=== PATIENT | male | born 1940 | race Caucasian/White ===

== ENCOUNTER 2022-03-10 05:40 | Outpatient (REF) | payer MEDICARE, OTHER, SELFPAY ==
[2022-03-10 07:11] LABS: MANUAL DIFF FLAG NO
[2022-03-10 07:35] LABS: Basophils Absolute Auto 0.1 X10*3/uL (0.0-0.2); Eosinophils Absolute Auto 0.1 X10*3/uL (0.0-0.4); Eosinophils Percent Auto 2.3 % (0-4); Hemoglobin 12.1 g/dl (14.0-18.0); Imm Gran Abs Auto 0.05 X10*3/uL (0.00-0.03); Imm Gran Pct Auto 0.9 % (0.0-0.4); Lymphocytes Absolute Auto 1.2 X10*3/uL (1.2-4.9); Lymphocytes Percent Auto 21.4 % (20-40); Mean Corpuscular HGB Conc 31.8 g/dl (31.0-36.0); Mean Corpuscular Hemoglobin 30.3 pg (27.0-33.0); Mean Platelet Volume 10.9 fL (9.4-12.4); Monocytes Absolute Auto 0.5 X10*3/uL (0.1-1.2); Monocytes Percent Auto 8.7 % (2-11); Neutrophils Absolute Auto 3.8 x10*3/uL (2.0-8.3); Neutrophils Percent Auto 65.7 % (45-73); Platelet Count 277 X10*3/uL (160-400); Red Cell Distribution Width 16.1 % (11.0-16.0); White Blood Count 5.8 X10*3/uL (4.8-10.8)
[2022-03-10 07:46] LABS: Appearance Urine CLEAR; Color Urine YELLOW; Glucose Urine UA NEG (NEG); Leukocyte Esterase Urine NEG (NEG); Nitrite Urine NEG (NEG); PH 5.5 (5.0-8.0); UACC Culture Trigger NO; Urine Blood TRACE (NEG); Urine Ketones NEG (NEG); Urine Protein TRACE MG/DL (NEG-TRACE)
[2022-03-10 07:54] LABS: Anion Gap 13 (12-20); Blood Urea Nitrogen 39 mg/dL (9-16); Calcium 9.9 mg/dL (8.4-10.2); Carbon Dioxide 25 mmol/L (22-29); Chloride 108 mmol/L (96-108); Cholesterol 113 mg/dL; Estimated Glomerular Filt Rate > 60; Glucose Random 81 mg/dL (60-115); HDL Cholesterol 38 mg/dL; LDL Cholesterol Calculated 54 mg/dl; Sodium 141 mmol/L (135-145); Triglycerides 109 mg/dL
[2022-03-10 07:56] LABS: Estimated Average Glucose 137 mg/dL; Hemoglobin A1c % 6.4 %
[2022-03-10 08:20] LABS: Creatinine Urine 92.48 mg/dL; Microalbum/Creatinine Ratio Ur 128.6 ug/mg cr
[2022-03-10 08:28] LABS: Squamous Epithelial Cell Urine TRACE /LPF
[2022-03-10 08:29] LABS: Bacteria Urine TRACE /LPF; Calcium Oxalate Crystals Urine TRACE /LPF
[2022-03-12 23:11] LABS: TS Negative Control Passed; TS Panel A 0; TS Panel B 0; TS Positive Control Passed; TSpotTB Negative (Negative)
== END 2022-03-10 05:41 | disposition home or self-care (01) ==
LOC: HO.HSH4E 05:40
PROVIDERS: Visit Provider Internal Medicine Endocrinology, Diabetes & Metabolism
DX: Z02.2 Encounter for examination for admission to residential institution (principal); Z11.1 Encounter for screening for respiratory tuberculosis; E11.9 Type 2 diabetes mellitus without complications; E78.5 Hyperlipidemia, unspecified
CPT/HCPCS: 36415; 80048; 80061; 81001; 81003; 82043; 83036; 85025; 86481

== ENCOUNTER 2022-04-05 05:36 | Outpatient (REF) | payer MEDICARE, OTHER, SELFPAY ==
[2022-04-05 08:21] LABS: Iron 65 mcg/dL (45-160); Percent Iron Saturation 19 % (15-50); Total Iron Binding Capacity 345 mcg/dL (228-428); Unsaturated Iron Binding 280 ug/dL
[2022-04-05 08:30] LABS: Ferritin 62 ng/mL (20-250); Thyroid Stimulating Hormone 1.29 uIU/mL (0.32-4.0)
[2022-04-05 08:39] LABS: Erythrocyte Sedimentation Rate 17 MM/HR (0-15)
[2022-04-05 08:55] LABS: Folate 10.2 ng/mL (> or = 4.0); Vitamin B12 231 pg/mL (200-900)
== END 2022-04-05 05:37 | disposition home or self-care (01) ==
LOC: HO.HSH4W 05:36
PROVIDERS: Visit Provider Internal Medicine
DX: D64.9 Anemia, unspecified (principal); M54.50 Low back pain, unspecified
CPT/HCPCS: 36415; 82607; 82728; 82746; 83540; 84443; 84550; 85652

== ENCOUNTER 2022-04-06 05:33 | Outpatient (REF) | payer MEDICARE, OTHER, SELFPAY ==
[2022-04-08 16:32] LABS: Homocysteine 16.6 umol/L (<11.4)
[2022-04-13 11:39] LABS: Methylmalonic Acid 287 nmol/L (87-318)
== END 2022-04-06 05:34 | disposition home or self-care (01) ==
LOC: HO.HSH4W 05:33
PROVIDERS: Visit Provider Internal Medicine
DX: E53.8 Deficiency of other specified B group vitamins (principal); M54.9 Dorsalgia, unspecified
CPT/HCPCS: 36415; 82550; 83090; 83921

== ENCOUNTER 2022-05-13 12:07 | Outpatient (REF) | payer MEDICARE, OTHER, SELFPAY ==
[2022-05-13 12:55] LABS: INTERNATIONAL NORM RATIO 1.1 (0.9-1.1)
[2022-05-13 12:58] LABS: Partial Thromboplastin Time 42.8 SEC (24.1-38.0)
== END 2022-05-13 12:08 | disposition home or self-care (01) ==
LOC: HO.HSH4E 12:07
PROVIDERS: Visit Provider Internal Medicine
DX: S32.9XXD Fracture of unspecified parts of lumbosacral spine and pelvis, subsequent encounter for fracture with routine healing (principal)
CPT/HCPCS: 36415; 85610; 85730

== ENCOUNTER 2022-05-16 10:06 | Outpatient (REF) | payer MEDICARE, SELFPAY ==
[2022-05-16 10:34] LABS: MANUAL DIFF FLAG NO
[2022-05-16 10:44] LABS: Basophils Percent Auto 0.3 % (0-2); Eosinophils Percent Auto 0.1 % (0-4); Hematocrit 37.5 % (42.0-52.0); Hemoglobin 12.4 g/dl (14.0-18.0); Imm Gran Abs Auto 0.12 X10*3/uL (0.00-0.03); Imm Gran Pct Auto 0.9 % (0.0-0.4); Lymphocytes Absolute Auto 0.5 X10*3/uL (1.2-4.9); Lymphocytes Percent Auto 3.8 % (20-40); Mean Corpuscular HGB Conc 33.1 g/dl (31.0-36.0); Mean Corpuscular Hemoglobin 31.6 pg (27.0-33.0); Mean Corpuscular Volume 95.7 fL (80.0-98.0); Mean Platelet Volume 11.6 fL (9.4-12.4); Monocytes Absolute Auto 0.8 X10*3/uL (0.1-1.2); Monocytes Percent Auto 6.2 % (2-11); Neutrophils Absolute Auto 11.8 x10*3/uL (2.0-8.3); Neutrophils Percent Auto 88.7 % (45-73); Platelet Count 313 X10*3/uL (160-400); Red Blood Count 3.92 X10*6/uL (4.60-5.80); Red Cell Distribution Width 15.5 % (11.0-16.0); White Blood Count 13.3 X10*3/uL (4.8-10.8)
== END 2022-05-16 10:07 | disposition home or self-care (01) ==
LOC: HO.HSH4W 10:06
PROVIDERS: Visit Provider Internal Medicine
DX: E11.9 Type 2 diabetes mellitus without complications (principal)
CPT/HCPCS: 36415; 85025

== ENCOUNTER 2022-05-28 15:34 | Outpatient (REF) | payer MEDICARE, SELFPAY ==
[2022-05-28 16:07] LABS: Hematocrit 37.9 % (42.0-52.0); Hemoglobin 12.2 g/dl (14.0-18.0); Mean Corpuscular HGB Conc 32.2 g/dl (31.0-36.0); Mean Corpuscular Hemoglobin 31.6 pg (27.0-33.0); Mean Corpuscular Volume 98.2 fL (80.0-98.0); Mean Platelet Volume 10.4 fL (9.4-12.4); Platelet Count 420 X10*3/uL (160-400); Red Blood Count 3.86 X10*6/uL (4.60-5.80); Red Cell Distribution Width 15.6 % (11.0-16.0); White Blood Count 9.7 X10*3/uL (4.8-10.8)
[2022-05-28 16:11] LABS: Appearance Urine CLEAR; Color Urine YELLOW; Glucose Urine UA NEG (NEG); Leukocyte Esterase Urine NEG (NEG); Nitrite Urine NEG (NEG); UACC Culture Trigger NO; Urine Blood TRACE (NEG); Urine Ketones NEG (NEG); Urine Protein NEG (NEG-TRACE)
[2022-05-28 16:24] LABS: Alanine Aminotransferase 9 U/L (0-40); Albumin Level 3.6 g/dL (3.5-5.0); Alkaline Phosphatase 104 U/L (39-117); Anion Gap 18 (12-20); Aspartate Amino Transferase 14 U/L (5-37); Blood Urea Nitrogen 55 mg/dL (9-16); Calcium 9.7 mg/dL (8.4-10.2); Carbon Dioxide 23 mmol/L (22-29); Chloride 104 mmol/L (96-108); Estimated Glomerular Filt Rate 46; Glucose Random 132 mg/dL (60-115); Potassium 5.3 mmol/L (3.3-5.1); Sodium 140 mmol/L (135-145); Total Protein 6.4 g/dL (6.5-8.0)
[2022-05-28 16:27] LABS: RBC Urine 0-2 /HPF (0); WBC Urine 0 /HPF (0-4)
[2022-05-28 16:31] LABS: Bilirubin Total 0.2 mg/dL (0.0-1.0)
== END 2022-05-28 15:35 | disposition home or self-care (01) ==
LOC: HO.HSH 15:34
PROVIDERS: Visit Provider Internal Medicine Interventional Cardiology
DX: D72.829 Elevated white blood cell count, unspecified (principal); R41.82 Altered mental status, unspecified
CPT/HCPCS: 36415; 80053; 81001; 81003; 85025; 85027

== ENCOUNTER 2022-06-07 07:44 | Outpatient (REF) | payer MEDICARE, SELFPAY ==
[2022-06-07 08:19] LABS: Anion Gap 15 (12-20); Blood Urea Nitrogen 31 mg/dL (9-16); Calcium 9.8 mg/dL (8.4-10.2); Carbon Dioxide 29 mmol/L (22-29); Chloride 102 mmol/L (96-108); Estimated Glomerular Filt Rate > 60; Glucose Fasting 114 mg/dL (60-99); Potassium 4.8 mmol/L (3.3-5.1); Sodium 141 mmol/L (135-145)
== END 2022-06-07 07:45 | disposition home or self-care (01) ==
LOC: HO.HSH4W 07:44
PROVIDERS: Visit Provider Internal Medicine
DX: I10 Essential (primary) hypertension (principal); E11.9 Type 2 diabetes mellitus without complications
CPT/HCPCS: 36415; 80048

== ENCOUNTER 2022-06-13 12:20 | Outpatient (REF) | payer MEDICARE, SELFPAY ==
[2022-06-13 13:59] LABS: Hematocrit 41.3 % (42.0-52.0); Hemoglobin 13.3 g/dl (14.0-18.0); Mean Corpuscular HGB Conc 32.2 g/dl (31.0-36.0); Mean Corpuscular Hemoglobin 31.2 pg (27.0-33.0); Mean Corpuscular Volume 96.9 fL (80.0-98.0); Mean Platelet Volume 11.7 fL (9.4-12.4); Platelet Count 301 X10*3/uL (160-400); Red Blood Count 4.26 X10*6/uL (4.60-5.80); Red Cell Distribution Width 14.9 % (11.0-16.0); White Blood Count 7.4 X10*3/uL (4.8-10.8)
[2022-06-13 14:08] LABS: Anion Gap 15 (12-20); Blood Urea Nitrogen 29 mg/dL (9-16); Calcium 10.7 mg/dL (8.4-10.2); Carbon Dioxide 27 mmol/L (22-29); Chloride 99 mmol/L (96-108); Estimated Glomerular Filt Rate > 60; Glucose Random 187 mg/dL (60-115); Potassium 5.1 mmol/L (3.3-5.1); Sodium 136 mmol/L (135-145)
== END 2022-06-13 12:21 | disposition home or self-care (01) ==
LOC: HO.HSH4W 12:20
PROVIDERS: Visit Provider Internal Medicine
DX: R41.0 Disorientation, unspecified (principal)
CPT/HCPCS: 36415; 80048; 85027

== ENCOUNTER 2022-06-16 | Outpatient (REF) | payer MEDICARE, SELFPAY | END 2022-06-16 00:01 | disposition home or self-care (01) | LOC: HO.HSH4W | PROVIDERS: Visit Provider Internal Medicine | DX: Z13.89 Encounter for screening for other disorder (principal) ==

== ENCOUNTER 2022-06-22 05:56 | Outpatient (REF) | payer MEDICARE, SELFPAY ==
[2022-06-22 06:38] LABS: MANUAL DIFF FLAG NO
[2022-06-22 06:42] LABS: Basophils Absolute Auto 0.1 X10*3/uL (0.0-0.2); Basophils Percent Auto 0.7 % (0-2); Eosinophils Absolute Auto 0.1 X10*3/uL (0.0-0.4); Hematocrit 37.5 % (42.0-52.0); Hemoglobin 11.9 g/dl (14.0-18.0); Imm Gran Abs Auto 0.18 X10*3/uL (0.00-0.03); Mean Corpuscular HGB Conc 31.7 g/dl (31.0-36.0); Mean Corpuscular Hemoglobin 31.1 pg (27.0-33.0); Mean Corpuscular Volume 97.9 fL (80.0-98.0); Mean Platelet Volume 10.8 fL (9.4-12.4); Monocytes Absolute Auto 0.8 X10*3/uL (0.1-1.2); Monocytes Percent Auto 8.8 % (2-11); Neutrophils Percent Auto 76.5 % (45-73); Platelet Count 362 X10*3/uL (160-400); Red Blood Count 3.83 X10*6/uL (4.60-5.80); White Blood Count 9.2 X10*3/uL (4.8-10.8)
== END 2022-06-22 05:57 | disposition home or self-care (01) ==
LOC: HO.HSH4W 05:56
PROVIDERS: Visit Provider Internal Medicine Interventional Cardiology
DX: K92.0 Hematemesis (principal)
CPT/HCPCS: 36415; 85025

== ENCOUNTER 2022-06-28 05:53 | Outpatient (REF) | payer MEDICARE, SELFPAY ==
[2022-06-28 07:37] LABS: MANUAL DIFF FLAG NO
[2022-06-28 07:39] LABS: Basophils Absolute Auto 0.1 X10*3/uL (0.0-0.2); Basophils Percent Auto 0.8 % (0-2); Eosinophils Absolute Auto 0.1 X10*3/uL (0.0-0.4); Eosinophils Percent Auto 1.4 % (0-4); Hematocrit 37.7 % (42.0-52.0); Hemoglobin 11.9 g/dl (14.0-18.0); Imm Gran Abs Auto 0.37 X10*3/uL (0.00-0.03); Lymphocytes Absolute Auto 1.3 X10*3/uL (1.2-4.9); Lymphocytes Percent Auto 13.5 % (20-40); Mean Corpuscular HGB Conc 31.6 g/dl (31.0-36.0); Mean Corpuscular Hemoglobin 31.3 pg (27.0-33.0); Mean Corpuscular Volume 99.2 fL (80.0-98.0); Mean Platelet Volume 11.8 fL (9.4-12.4); Monocytes Absolute Auto 0.8 X10*3/uL (0.1-1.2); Monocytes Percent Auto 8.8 % (2-11); Neutrophils Absolute Auto 6.7 x10*3/uL (2.0-8.3); Neutrophils Percent Auto 71.5 % (45-73); Platelet Count 395 X10*3/uL (160-400); Red Cell Distribution Width 15.5 % (11.0-16.0); White Blood Count 9.3 X10*3/uL (4.8-10.8)
[2022-06-28 07:52] LABS: Alanine Aminotransferase 6 U/L (0-40); Albumin Level 3.5 g/dL (3.5-5.0); Alkaline Phosphatase 89 U/L (39-117); Anion Gap 16 (12-20); Aspartate Amino Transferase 11 U/L (5-37); Bilirubin Total 0.2 mg/dL (0.0-1.0); Blood Urea Nitrogen 43 mg/dL (9-16); Calcium 9.6 mg/dL (8.4-10.2); Carbon Dioxide 27 mmol/L (22-29); Chloride 105 mmol/L (96-108); Estimated Glomerular Filt Rate > 60; Glucose Fasting 118 mg/dL (60-99); Potassium 5.8 mmol/L (3.3-5.1); Sodium 142 mmol/L (135-145); Total Protein 6.2 g/dL (6.5-8.0)
== END 2022-06-28 05:54 | disposition home or self-care (01) ==
LOC: HO.HSH4W 05:53
PROVIDERS: Visit Provider Internal Medicine
DX: D64.9 Anemia, unspecified (principal); R53.83 Other fatigue
CPT/HCPCS: 36415; 80053; 85025

== ENCOUNTER 2022-06-29 | Outpatient (REF) | payer MEDICARE, SELFPAY ==
[2022-06-30 07:53] LABS: OBS Int Ctl Valid YES; OBS1 NEGATIVE (NEGATIVE)
== END 2022-06-30 06:01 | disposition home or self-care (01) ==
LOC: HO.HSH4W
PROVIDERS: Visit Provider Internal Medicine
DX: D64.9 Anemia, unspecified (principal)
CPT/HCPCS: 82272

== ENCOUNTER 2022-07-02 19:24 | Outpatient (REF) | payer MEDICARE, SELFPAY ==
[2022-07-02 19:30] LABS: OBS Int Ctl Valid YES; OBS1 NEGATIVE (NEGATIVE)
== END 2022-07-02 19:25 | disposition home or self-care (01) ==
LOC: HO.HSH4W 19:24
PROVIDERS: Visit Provider Internal Medicine
DX: D64.9 Anemia, unspecified (principal)
CPT/HCPCS: 82272

== ENCOUNTER 2022-07-10 20:37 | Outpatient (REF) | payer MEDICARE, OTHER, SELFPAY ==
[2022-07-10 20:59] LABS: OBS Int Ctl Valid YES; OBS1 NEGATIVE (NEGATIVE)
== END 2022-07-10 20:38 | disposition home or self-care (01) ==
LOC: HO.HSH 20:37
PROVIDERS: Visit Provider Internal Medicine
DX: D64.9 Anemia, unspecified (principal)
CPT/HCPCS: 82272

== ENCOUNTER 2022-08-04 05:56 | Outpatient (REF) | payer MEDICARE, OTHER, SELFPAY ==
[2022-08-06 14:47] LABS: Immunoglobulin A 241 mg/dL (70-320)
[2022-08-09 09:07] LABS: Transglutaminase IgA <1.0 U/mL
== END 2022-08-04 05:57 | disposition home or self-care (01) ==
LOC: HO.HSH4W 05:56
PROVIDERS: Visit Provider Internal Medicine
DX: R63.4 Abnormal weight loss (principal)
CPT/HCPCS: 36415; 82784; 86364

== ENCOUNTER 2022-08-05 21:06 | Outpatient (REF) | payer MEDICARE, OTHER, SELFPAY | END 2022-08-05 21:07 | disposition home or self-care (01) | LOC: HO.HSH4W 21:06 | PROVIDERS: Visit Provider Internal Medicine | DX: R63.4 Abnormal weight loss (principal) | CPT/HCPCS: 87338 ==

== ENCOUNTER 2022-08-31 06:03 | Outpatient (REF) | payer MEDICARE, OTHER, SELFPAY ==
[2022-08-31 07:57] LABS: Estimated Average Glucose 140 mg/dL; Hemoglobin A1c % 6.5 %
[2022-08-31 08:12] LABS: Alanine Aminotransferase < 6 U/L (0-40); Albumin Level 3.8 g/dL (3.5-5.0); Alkaline Phosphatase 74 U/L (39-117); Anion Gap 18 (12-20); Aspartate Amino Transferase 11 U/L (5-37); Bilirubin Total 0.2 mg/dL (0.0-1.0); Blood Urea Nitrogen 37 mg/dL (9-16); Calcium 9.8 mg/dL (8.4-10.2); Carbon Dioxide 26 mmol/L (22-29); Chloride 104 mmol/L (96-108); Estimated Glomerular Filt Rate > 60; Glucose Fasting 114 mg/dL (60-99); Potassium 5.1 mmol/L (3.3-5.1); Sodium 143 mmol/L (135-145); Total Protein 6.5 g/dL (6.5-8.0)
== END 2022-08-31 06:04 | disposition home or self-care (01) ==
LOC: HO.HSH4W 06:03
PROVIDERS: Visit Provider Internal Medicine
DX: E11.9 Type 2 diabetes mellitus without complications (principal); I10 Essential (primary) hypertension
CPT/HCPCS: 36415; 80053; 83036

== ENCOUNTER 2022-09-01 12:57 | Outpatient (REF) | payer MEDICARE, OTHER, SELFPAY ==
[2022-09-01 13:05] LABS: MANUAL DIFF FLAG NO
[2022-09-01 13:12] LABS: Basophils Absolute Auto 0.1 X10*3/uL (0.0-0.2); Basophils Percent Auto 0.7 % (0-2); Eosinophils Absolute Auto 0.2 X10*3/uL (0.0-0.4); Eosinophils Percent Auto 1.7 % (0-4); Hematocrit 36.8 % (42.0-52.0); Hemoglobin 11.6 g/dl (14.0-18.0); Imm Gran Abs Auto 0.06 X10*3/uL (0.00-0.03); Imm Gran Pct Auto 0.6 % (0.0-0.4); Lymphocytes Absolute Auto 1.1 X10*3/uL (1.2-4.9); Lymphocytes Percent Auto 11.2 % (20-40); Mean Corpuscular HGB Conc 31.5 g/dl (31.0-36.0); Mean Corpuscular Hemoglobin 31.4 pg (27.0-33.0); Mean Corpuscular Volume 99.7 fL (80.0-98.0); Mean Platelet Volume 11.3 fL (9.4-12.4); Monocytes Absolute Auto 0.8 X10*3/uL (0.1-1.2); Monocytes Percent Auto 8.7 % (2-11); Neutrophils Absolute Auto 7.3 x10*3/uL (2.0-8.3); Neutrophils Percent Auto 77.1 % (45-73); Platelet Count 324 X10*3/uL (160-400); Red Blood Count 3.69 X10*6/uL (4.60-5.80); Red Cell Distribution Width 14.6 % (11.0-16.0); White Blood Count 9.5 X10*3/uL (4.8-10.8)
== END 2022-09-01 12:58 | disposition home or self-care (01) ==
LOC: HO.HSH4W 12:57
PROVIDERS: Visit Provider Internal Medicine
DX: R05.9 Cough, unspecified (principal)
CPT/HCPCS: 36415; 85025

== ENCOUNTER 2022-09-22 12:56 | Outpatient (REF) | payer MEDICARE, OTHER, SELFPAY ==
[2022-09-22 13:18] LABS: MANUAL DIFF FLAG NO
[2022-09-22 13:29] LABS: Basophils Percent Auto 0.4 % (0-2); Eosinophils Percent Auto 0.1 % (0-4); Hematocrit 37.1 % (42.0-52.0); Hemoglobin 11.4 g/dl (14.0-18.0); Imm Gran Abs Auto 0.13 X10*3/uL (0.00-0.03); Imm Gran Pct Auto 1.3 % (0.0-0.4); Lymphocytes Absolute Auto 0.5 X10*3/uL (1.2-4.9); Lymphocytes Percent Auto 4.9 % (20-40); Mean Corpuscular HGB Conc 30.7 g/dl (31.0-36.0); Mean Corpuscular Hemoglobin 30.4 pg (27.0-33.0); Mean Corpuscular Volume 98.9 fL (80.0-98.0); Mean Platelet Volume 10.9 fL (9.4-12.4); Monocytes Absolute Auto 0.7 X10*3/uL (0.1-1.2); Monocytes Percent Auto 6.4 % (2-11); Neutrophils Absolute Auto 8.9 x10*3/uL (2.0-8.3); Neutrophils Percent Auto 86.9 % (45-73); Platelet Count 364 X10*3/uL (160-400); Red Blood Count 3.75 X10*6/uL (4.60-5.80); Red Cell Distribution Width 14.4 % (11.0-16.0); White Blood Count 10.2 X10*3/uL (4.8-10.8)
[2022-09-22 14:02] LABS: Anion Gap 17 (12-20); Blood Urea Nitrogen 38 mg/dL (9-16); Calcium 9.8 mg/dL (8.4-10.2); Carbon Dioxide 27 mmol/L (22-29); Chloride 103 mmol/L (96-108); Estimated Glomerular Filt Rate > 60; Glucose Random 134 mg/dL (60-115); Potassium 5.8 mmol/L (3.3-5.1); Sodium 141 mmol/L (135-145)
== END 2022-09-22 12:57 | disposition home or self-care (01) ==
LOC: HO.HSH4W 12:56
PROVIDERS: Visit Provider Internal Medicine
DX: R53.83 Other fatigue (principal); R09.02 Hypoxemia
CPT/HCPCS: 36415; 80048; 85025

== ENCOUNTER 2022-09-26 06:44 | Outpatient (REF) | payer MEDICARE, OTHER, SELFPAY ==
[2022-09-26 07:51] LABS: Estimated Average Glucose 140 mg/dL; Hemoglobin A1c % 6.5 %
[2022-09-26 08:12] LABS: Anion Gap 17 (12-20); Blood Urea Nitrogen 42 mg/dL (9-16); Carbon Dioxide 29 mmol/L (22-29); Chloride 103 mmol/L (96-108); Estimated Glomerular Filt Rate > 60; Glucose Fasting 113 mg/dL (60-99); Sodium 144 mmol/L (135-145)
== END 2022-09-26 06:45 | disposition home or self-care (01) ==
LOC: HO.HSH4W 06:44
PROVIDERS: Visit Provider Internal Medicine
DX: E11.9 Type 2 diabetes mellitus without complications (principal); E87.5 Hyperkalemia
CPT/HCPCS: 36415; 80048; 83036

== ENCOUNTER 2022-10-17 06:14 | Outpatient (REF) | payer MEDICARE, OTHER, SELFPAY ==
[2022-10-17 07:42] LABS: MANUAL DIFF FLAG NO
[2022-10-17 07:44] LABS: Basophils Absolute Auto 0.1 X10*3/uL (0.0-0.2); Basophils Percent Auto 0.6 % (0-2); Eosinophils Absolute Auto 0.1 X10*3/uL (0.0-0.4); Eosinophils Percent Auto 1.2 % (0-4); Hematocrit 37.6 % (42.0-52.0); Hemoglobin 11.7 g/dl (14.0-18.0); Imm Gran Abs Auto 0.39 X10*3/uL (0.00-0.03); Imm Gran Pct Auto 4.2 % (0.0-0.4); Lymphocytes Absolute Auto 1.2 X10*3/uL (1.2-4.9); Lymphocytes Percent Auto 13.4 % (20-40); Mean Corpuscular HGB Conc 31.1 g/dl (31.0-36.0); Mean Corpuscular Hemoglobin 29.4 pg (27.0-33.0); Mean Corpuscular Volume 94.5 fL (80.0-98.0); Mean Platelet Volume 11.3 fL (9.4-12.4); Monocytes Absolute Auto 0.6 X10*3/uL (0.1-1.2); Monocytes Percent Auto 6.7 % (2-11); Neutrophils Absolute Auto 6.9 x10*3/uL (2.0-8.3); Neutrophils Percent Auto 73.9 % (45-73); Platelet Count 338 X10*3/uL (160-400); Red Blood Count 3.98 X10*6/uL (4.60-5.80); Red Cell Distribution Width 14.7 % (11.0-16.0); White Blood Count 9.3 X10*3/uL (4.8-10.8)
[2022-10-17 08:08] LABS: Anion Gap 16 (12-20); Blood Urea Nitrogen 38 mg/dL (9-16); Calcium 9.5 mg/dL (8.4-10.2); Carbon Dioxide 32 mmol/L (22-29); Chloride 101 mmol/L (96-108); Estimated Glomerular Filt Rate > 60; Glucose Fasting 72 mg/dL (60-99); Magnesium 1.9 mg/dL (1.6-2.6); Phosphorus 3.4 mg/dL (2.7-4.5); Potassium 5.2 mmol/L (3.3-5.1); Sodium 144 mmol/L (135-145)
== END 2022-10-17 06:15 | disposition home or self-care (01) ==
LOC: HO.HSH4W 06:14
PROVIDERS: Visit Provider Internal Medicine
DX: I10 Essential (primary) hypertension (principal); J44.9 Chronic obstructive pulmonary disease, unspecified; D64.9 Anemia, unspecified
CPT/HCPCS: 36415; 80048; 83735; 84100; 85025

== ENCOUNTER 2022-10-19 10:06 | Outpatient (REF) | payer MEDICARE, OTHER, SELFPAY ==
[2022-10-19 16:23] LABS: CDiff Gene PCR NEGATIVE (Negative)
== END 2022-10-19 10:07 | disposition home or self-care (01) ==
LOC: HO.HSH4W 10:06
PROVIDERS: Visit Provider Internal Medicine
DX: R19.7 Diarrhea, unspecified (principal)
CPT/HCPCS: 36415; 87493

== ENCOUNTER 2022-10-21 10:48 | Outpatient (REF) | payer MEDICARE, OTHER, SELFPAY ==
[2022-10-21 11:17] LABS: MANUAL DIFF FLAG NO
[2022-10-21 11:19] LABS: Basophils Absolute Auto 0.1 X10*3/uL (0.0-0.2); Basophils Percent Auto 0.6 % (0-2); Eosinophils Absolute Auto 0.1 X10*3/uL (0.0-0.4); Eosinophils Percent Auto 0.9 % (0-4); Hematocrit 37.7 % (42.0-52.0); Hemoglobin 11.6 g/dl (14.0-18.0); Imm Gran Pct Auto 1.6 % (0.0-0.4); Lymphocytes Absolute Auto 0.7 X10*3/uL (1.2-4.9); Lymphocytes Percent Auto 5.8 % (20-40); Mean Corpuscular HGB Conc 30.8 g/dl (31.0-36.0); Mean Corpuscular Hemoglobin 29.7 pg (27.0-33.0); Mean Corpuscular Volume 96.4 fL (80.0-98.0); Mean Platelet Volume 11.6 fL (9.4-12.4); Monocytes Absolute Auto 0.8 X10*3/uL (0.1-1.2); Monocytes Percent Auto 6.5 % (2-11); Neutrophils Absolute Auto 10.4 x10*3/uL (2.0-8.3); Neutrophils Percent Auto 84.6 % (45-73); Platelet Count 275 X10*3/uL (160-400); Red Blood Count 3.91 X10*6/uL (4.60-5.80); Red Cell Distribution Width 15.1 % (11.0-16.0); White Blood Count 12.3 X10*3/uL (4.8-10.8)
[2022-10-21 11:24] LABS: Ammonia 43 umol/L (13-55)
[2022-10-21 11:54] LABS: Alanine Aminotransferase 8 U/L (0-40); Albumin Level 3.5 g/dL (3.5-5.0); Alkaline Phosphatase 80 U/L (39-117); Anion Gap 16 (12-20); Aspartate Amino Transferase 10 U/L (5-37); Bilirubin Total 0.4 mg/dL (0.0-1.0); Blood Urea Nitrogen 34 mg/dL (9-16); Calcium 9.5 mg/dL (8.4-10.2); Carbon Dioxide 29 mmol/L (22-29); Chloride 104 mmol/L (96-108); Estimated Glomerular Filt Rate > 60; Glucose Random 165 mg/dL (60-115); Potassium 4.6 mmol/L (3.3-5.1); Sodium 144 mmol/L (135-145); Total Protein 6.3 g/dL (6.5-8.0)
== END 2022-10-21 10:49 | disposition home or self-care (01) ==
LOC: HO.HSH4W 10:48
PROVIDERS: Visit Provider Internal Medicine
DX: R10.9 Unspecified abdominal pain (principal); R19.7 Diarrhea, unspecified; R41.82 Altered mental status, unspecified
CPT/HCPCS: 36415; 80053; 82140; 85025